=== PATIENT | female | born 1995 | race Caucasian/White ===

== ENCOUNTER 2018-08-25 17:30 | Inpatient (IN) ==
--- NOTE | 2018-08-25 17:50 | Emergency Department Note ---
Disposition Clinical Impression: Suicidal ideation Disposition: Admitted As Inpatient Condition: Good Referrals: NONE,PCP [Primary Care Provider] - Forms: ED Satisfaction Letter Time of Disposition: 19:05 Psych HPI - General Chief Complaint: ED Psychiatric Symptoms Stated Complaint: SI Time Seen by Provider: 08/25/18 17:39 Source: patient, family Mode of arrival: ambulatory Limitations: no limitations Nursing Notes Reviewed: Yes Vital Signs Reviewed: Yes - History of Present Illness HPI Narrative: Patient presenting to the ED with request for psychiatric admission. Patient reports that she has had multiple previous psychiatric admissions and has had several attempts in the past. Reports increasing feelings of suicidal ideation over the last 2 weeks, getting worse today. States that she is come up with "multiple ways to kill myself." She was in an inpatient psychiatric facility previously, but they were having issues with her getting proper medication and was told to come here for evaluation by psychiatry. She denies any medical problems. She has had a recent increase in her Abilify and doubling of her Remeron which she thinks may be contributing to these symptoms. Denies any headache, changes in vision, chest pain, shortness breath, abdominal pain, nausea, vomiting, diarrhea or rash - Related Data Previous Rx's Medication Instructions Recorded Ibuprofen [Motrin] 600 mg PO Q6HR PRN #20 tab 06/10/16 Sulfamethoxazole/Trimeth DS 1 each PO BID #14 tablet 06/10/16 [Bactrim DS] Allergies Allergy/AdvReac Type Severity Reaction Status Date / Time bupropion [From Wellbutrin] Allergy See Verified 08/25/18 17:36 Comments escitalopram [From Lexapro] Allergy See Verified 08/25/18 17:36 Comments fluoxetine [From Prozac] Allergy See Verified 08/25/18 17:36 Comments phenytoin [From Dilantin] Allergy Seizure Verified 08/25/18 17:36 quetiapine [From Seroquel] Allergy See Verified 08/25/18 17:36 Comments Review of Systems: As reviewed in the HPI. All other systems reviewed are negative or normal. Past Medical History - Past Medical History Attestation: Yes The following information was validated with the patient. Source: patient Medical history: Reports: no medical history, other Surgical history: Reports: (The patient denies any major medical problems however she is allergic to multiple psychotropics which may indicate a history of anxiety or depression) Psychiatric history: Reports: anxiety, depression, prior suicide attempt, previous psychiatric hospitalization LEAD CASTER history: Reports: no LEAD CASTER history - Social History Smoking Status: Current every day smoker Smokeless Tobacco Status: No Alcohol use: Reports: none Drug use: Reports: marijuana Physical Exam CONSTITUTIONAL: [well appearing, alert and in no acute distress] EYES: [EOMI, clear conjunctiva, PERRLA] HENT: [Normocephalic, atraumatic, moist mucus membranes, normal oropharynx] NECK: [normal inspection, full ROM, trachea midline, no obvious swelling] PULMONARY: [normal lung sounds bilaterally, normal chest rise and fall, no respiratory distress or stridor, no wheezes, no rales, no rhonchi CARDIOVASCULAR: [regular rate, regular rhythm, normal heart sounds, no murmurs, distal extremities are warm and well perfused] NEUROLOGIC: [Alert, oriented x3, normal speech, moves all extremities] EXTREMITIES: [Normal inspection, full ROM, no tenderness, no pedal edema, normal capillary refill] MUSCULOSKELETAL: [no gross deformities, atraumatic] SKIN: [No cyanosis, no diaphoresis, normal color, warm, no rash] PSYCHIATRIC: [flat affect, very strict speech, normal insight] - General Limitations: no limitations General appearance: alert, in no apparent distress Course Course Narrative: Pt to be admitted. Vital Signs Temperature 98.1 F 08/25/18 17:33 Pulse Rate 77 08/25/18 17:33 Respiratory Rate 16 08/25/18 17:33 Blood Pressure 127/82 08/25/18 17:33 O2 Sat by Pulse Oximetry 100 08/25/18 17:33 Temperature 98.1 F 08/25/18 17:33 Pulse Rate 77 08/25/18 17:33 Respiratory Rate 16 08/25/18 17:33 Blood Pressure 127/82 08/25/18 17:33 O2 Sat by Pulse Oximetry 100 08/25/18 17:33 Oxygen Delivery Oxygen Delivery Room Air Psych - Lab Data Result diagrams: 08/25/18 17:52 08/25/18 17:52 Lab Results 08/25/18 08/25/18 Range/Units 17:52 17:52 WBC 12.0 H (4.3-11.1) K/mcL RBC 4.74 (3.82-4.97) M/mcL Hgb 14.8 (11.5-15.4) g/dL Hct 43.5 (35.3-44.9) % MCV 91.8 (83.0-100.0) fL MCH 31.2 (28.0-33.3) pg MCHC 34.0 (31.6-35.5) g/dL RDW 12.6 (11.5-14.5) % Plt Count 213 (140-400) K/mcL MPV 9.0 L (9.4-12.4) fL Immature Gran % 1.2 (0-4) % Seg Neutrophils % 65.9 % Lymphocytes % 27.6 % Monocytes % 4.3 % Eosinophils % 0.6 % Basophils % 0.4 % Neutrophils # 7.9 (1.6-8.9) K/mcL Lymphocytes # 3.3 (0.6-4.6) K/mcL Monocytes # 0.5 (0.0-1.3) K/mcL Eosinophils # 0.1 (0.0-0.6) K/mcL Basophils # 0.1 (0.0-0.2) K/mcL Sodium 139 (136-145) mEq/L Potassium 3.8 (3.5-5.1) mEq/L Chloride 102 (98-107) mEq/L Carbon Dioxide 28 (23-29) mEq/L BUN 13 (6-20) mg/dL Creatinine 0.77 (0.60-1.20) mg/dL Est GFR ( Amer) > 60 (> 60) Est GFR (Non-Af Amer) > 60 (> 60) BUN/Creatinine Ratio 17 (6-26) Glucose 101 (70-105) mg/dL Calculated Osmolality 288 (280-300) Calcium 9.8 (8.6-10.3) mg/dL Salicylates < 2.5 L (15.0-30.0) mg/dL Acetaminophen < 10 L (10-20) mcg/mL Ethyl Alcohol < 10 (Less than 10) mg/dL - EKG Data EKG attestation: Yes I reviewed and interpreted this EKG. EKG results narrative: NSR, rate 71, normal axis, no acute ischemic changes. Psychiatric Medical Clearance - Medical Clearance Checklist Medical History: No Social History Section defined Current Vitals: Last Vital Signs Temp 98.1 F 05/06/19 17:33 Pulse 77 08/25/18 17:33 Resp 16 08/25/18 17:33 BP 127/82 08/25/18 17:33 Pulse Ox 100 08/25/18 17:33 Psychiatric Lab Panel: Drug Levels and Toxicity 08/25/18 17:52 Acetaminophen < 10 L Ethyl Alcohol < 10 Abnormal Labs: Abnormal lab results WBC 12.0 K/mcL (4.3-11.1) H 08/25/18 17:52 MPV 9.0 fL (9.4-12.4) L 08/25/18 17:52 Salicylates < 2.5 mg/dL (15.0-30.0) L 08/25/18 17:52 Acetaminophen < 10 mcg/mL (10-20) L 08/25/18 17:52 Statement of Medical Clearance: I have evaluated the patient, reviewed diagnostic information, and certify that the patient's medical condition is sufficiently stable that transfer to the psychiatric unit does not pose a significant risk of deterioration. Attestation Statement - Attestation Attestation: I have seen this patient with the resident physician, I have personally evaluated this patient. I had reviewed the chart and document dictation by the resident physician and aM in agreement with the information documented by the resident physician. Please see documentation by the resident physician for complete chart including past medical history, family medical history, review of systems, current history and physical and laboratory and imaging studies. I was present for all procedures, provided direct supervision for all procedures, was present for the entirety of all procedures and provided direct guidance during the procedures. Please see documentation by the resident physician for any procedures performed. Patient presented emergency department with chief complaint of progressive suicidal ideation or auditory hallucinations with plan to kill her self. She states she has seen outpatient resources several times but they have adjusted her medications as not helping and she feels like she is getting worse. On physical exam she is alert and oriented 3 but has a very flat affect and speaks in a monotonous voice. She has no obvious evidence of current hallucinations. No other focal findings on her physical exam without evidence of toxidrome. Basic laboratory studies were ordered for medical clearance, these were within acceptable limits patient was admitted to psychiatry.
[2018-08-25 18:07] LABS: Basophils # 0.1 K/mcL (0.0-0.2); Basophils % 0.4 %; Eosinophils # 0.1 K/mcL (0.0-0.6); Eosinophils % 0.6 %; Hematocrit 43.5 % (35.3-44.9); Hemoglobin 14.8 g/dL (11.5-15.4); Immature Granulocytes % 1.2 % (0-4); Lymphocytes # 3.3 K/mcL (0.6-4.6); Lymphocytes % 27.6 %; Mean Corpuscular Hemoglobin 31.2 pg (28.0-33.3); Mean Corpuscular Volume 91.8 fL (83.0-100.0); Monocytes # 0.5 K/mcL (0.0-1.3); Monocytes % 4.3 %; Neutrophils # 7.9 K/mcL (1.6-8.9); Platelet Count 213 K/mcL (140-400); Red Blood Count 4.74 M/mcL (3.82-4.97); Red Cell Distribution Width 12.6 % (11.5-14.5); Segmented Neutrophils % 65.9 %
[2018-08-25 18:28] LABS: Acetaminophen < 10 mcg/mL (10-20); BUN/Creatinine Ratio 17 (6-26); Blood Urea Nitrogen 13 mg/dL (6-20); Calcium 9.8 mg/dL (8.6-10.3); Carbon Dioxide 28 mEq/L (23-29); Chloride 102 mEq/L (98-107); Ethanol < 10 mg/dL (Less than 10); Glucose 101 mg/dL (70-105); Osmolality,Calculated 288 (280-300); Potassium 3.8 mEq/L (3.5-5.1); Salicylate < 2.5 mg/dL (15.0-30.0); Sodium 139 mEq/L (136-145); eGFR For Non-African Americans > 60 (> 60)
[2018-08-25] MEDS ORDERED: Mag Hydrox/Al Hydrox/Simeth 30 ML UDC PO PRN (19:32)
[2018-08-25] MEDS ORDERED: *HR* LORazepam 1 MG TABLET PO PRN (19:32)
[2018-08-25] MEDS ORDERED: Haloperidol Lactate 5 MG/ML VIAL IM PRN (19:32)
[2018-08-25] MEDS ORDERED: Ibuprofen 400 MG TABLET PO PRN (19:32)
[2018-08-25] MEDS ORDERED: *HR* LORazepam 2 MG/ML VIAL IM PRN (19:32)
[2018-08-25] MEDS ORDERED: MOM Conc 10 ML UD.LIQ PO PRN (19:32)
[2018-08-25] MEDS: Nicotine 2 MG GUM BC PRN (21:19)
[2018-08-25] MEDS: hydrOXYzine pamoate 25 MG CAPSULE PO PRN (21:19)
[2018-08-25] MEDS: traZODone 50 MG TABLET PO PRN (21:19)
[2018-08-26] MEDS: Nicotine 2 MG GUM BC PRN ×3 (08:19→21:38)
--- NOTE | 2018-08-26 11:08 | Psychiatry History & Physical ---
Date of Encounter: 08/26/18 Time of Encounter: 10:58 History of Present Illness Patient Stated Chief Complaint: suicidal ideation Medicare Admission Attestation: For traditional Medicare patients the provided hospital inpatient services are reasonable and necessary and in the case of services not specified as inpatient-only under 42 CFR 419.22 (n), that they are appropriately provided as inpatient services in accordance 42 CFR 412.3. For Critical Access Hospital the patient may reasonably be expected to be discharged or transferred to a hospital within 96 hours after admission to the Critical Access Hospital. Admitted From: Home Plans for Post Hospital Care: Home History of Present Illness: Ms. Bennett is a 23 year old female who was admitted secondary to suicidal ideation. Client has a history of Schizoaffective Disorder, PTSD, KAILYN, and Borderline Personality Disorder. She has been hospitalized multiple times at [facility] starting at the age of 12y/o and once as a adult at [facility] following an overdose attempt. Currently follows with [facility] and she sees a psychiatrist and a counselor. Takes Abilify and Remeron. Doses of these meds were just increased to 20mg and 30mg but client reports no benefit. Also reports failed trials with Prozac, Lexapro, Wellbutrin, and Seroquel. Client reports multiple past suicide attempts and self injurious behaviors. Endorses AH and VH at baseline and finds these symptoms distressing. Physically healthy. No AOD use. Unaware of any mental illness in family members. Lives with bassam and four year old son. Gets [facility] for mental health. Discussed treatment options and client would like to try Zyprexa. Discussed risks and benefits and will plan to start this medication tonight. Client appears very flat with some thought blocking and delayed responses. Thoughts are organized and she answers questions appropriately but she seems to have a lot of negative symptoms. Client reports poor sleep but a healthy appetite. Past Med Surg Social Fam HX - Past Medical History Medical history: no medical history, other - Past Psychiatric History Psychiatric history: Reports: depression, prior suicide attempt, schizophrenia, previous psychiatric hospitalization Family psychiatric history: No Family History of Suicide: None - Past Surgical History Surgical History: (The patient denies any major medical problems however she is allergic to multiple psychotropics which may indicate a history of anxiety or depression) - Social History Smoking Status: Current every day smoker Smokeless Tobacco Status: No Alcohol use: none Drug use: marijuana - Family History Father Name: lisa bennett Age: 53 Living Status: Still Living Hx Family Cardiac Disorders: Yes (htn) Hx Family Respiratory Disorders: No Hx Family Cancer: No Hx Family GI Disorders: No Hx Family Genitourinary Disorders: No Hx Family Endocrine Disorder: No Hx Family Musculoskeletal Disorders: No Hx Family Neuromuscular Disorders: No Hx Family Neurologic Disorders: No Hx Family HEENT Disorders: No Hx Family Autoimmune Disorders: No Hx Family Reproductive Disorders: No Hx Family Psychosocial Disorders: No Hx Family Medical Disorders: No Medications & Allergies Ibuprofen [Motrin] 600 mg PO Q6HR PRN #20 tab 06/10/16 [Rx] Sulfamethoxazole/Trimeth DS [Bactrim DS] 1 each PO BID #14 tablet 06/10/16 [Rx] Allergy/AdvReac Type Severity Reaction Status Date / Time bupropion [From Wellbutrin] Allergy See Verified 08/25/18 17:36 Comments escitalopram [From Lexapro] Allergy See Verified 08/25/18 17:36 Comments fluoxetine [From Prozac] Allergy See Verified 08/25/18 17:36 Comments phenytoin [From Dilantin] Allergy Seizure Verified 08/25/18 17:36 quetiapine [From Seroquel] Allergy See Verified 08/25/18 17:36 Comments Review of Systems Constitutional: Denies: fever, chills, weakness, weight change Eyes: Denies: eye pain, vision change Ears, Nose, Throat: Denies: ear pain, throat pain, dental pain, hearing loss, congestion Cardiovascular: Denies: chest pain, palpitations, dyspnea on exertion Respiratory: Denies: cough, dyspnea, wheezes Gastrointestinal: Denies: abdominal pain, nausea, vomiting, diarrhea, cons tipation Genitourinary female: Denies: urgency, dysuria, frequency, abnormal menses, dyspareunia Musculoskeletal: Denies: joint swelling, joint pain Integumentary: Denies: rash, lesions, pruritus Neurological: Denies: headache, weakness, numbness, memory loss Endocrine: Denies: fatigue, heat or cold intolerance Hematologic/Lymphatic: Denies: easy bruising, lymphadenopathy Allergic/Immunologic: Denies: urticaria, itchy eyes Exam - HEENT Head exam IM: Present: atraumatic Eye exam IM: Present: EOMI, normal appearance, PERRL ENT exam IM: Present: normal exam - Neurological Neurological exam: Present: CN II-XII intact - Respiratory Respiratory exam IM: Present: CTAB - GI/Abdominal GI/Abdominal exam IM: Present: normal bowel sounds, soft. Absent: tenderness - Extremities Extremities exam IM: Present: full ROM - Skin Skin exam IM: Present: dry, warm - Constitutional Vitals: Temp Pulse Resp BP Pulse Ox 98.5 F 66 16 106/77 97 08/26/18 09:00 08/26/18 09:00 08/26/18 09:00 08/26/18 09:00 08/26/18 09:00 General appearance: age & developmentally appropriate, well-groomed, well- nourished - Musculoskeletal Gait: normal Station: relaxed Strength & Tone: normal for patient - Psychiatric Patient Orientation: Yes Person, Yes Time, Yes Place Level of alertness: Alert Behavior: calm, cooperative Psychomotor activity: Slowed Eye Contact: Intense Contact Mood Description: Depressed Affect description: flat Speech Volume: Normal Speech pattern: monotone Thought Process: Thought Blocking Thought Content: Yes Suicidal ideation, No Homicidal ideation, No Overt delusions Perceptual Disturbances: No Reacting to internal stimuli, Yes Auditory hallucinations, Yes Visual hallucinations Attention Span Ability: Capable of Focused Attention Memory Description: Grossly Intact Patient Reliability: Reliable Historian Fund of knowledge: Yes abstraction ability Intelligence Estimate: Average Judgment: Limited Insight: Partial Results - Drug Levels and Toxicology Drug Levels and Toxicology: Drug Levels and Toxicity 08/25/18 17:52 Acetaminophen < 10 L Ethyl Alcohol < 10 - Labs Labs: Laboratory Last Values WBC 12.0 K/mcL (4.3-11.1) H 08/25/18 17:52 RBC 4.74 M/mcL (3.82-4.97) 08/25/18 17:52 Hgb 14.8 g/dL (11.5-15.4) 08/25/18 17:52 Hct 43.5 % (35.3-44.9) 08/25/18 17:52 MCV 91.8 fL (83.0-100.0) 08/25/18 17:52 MCH 31.2 pg (28.0-33.3) 08/25/18 17:52 MCHC 34.0 g/dL (31.6-35.5) 08/25/18 17:52 RDW 12.6 % (11.5-14.5) 08/25/18 17:52 Plt Count 213 K/mcL (140-400) 08/25/18 17:52 MPV 9.0 fL (9.4-12.4) L 08/25/18 17:52 Immature Gran % 1.2 % (0-4) 08/25/18 17:52 Seg Neutrophils % 65.9 % 08/25/18 17:52 27.6 % 08/25/18 17:52 4.3 % 08/25/18 17:52 0.6 % 08/25/18 17:52 0.4 % 08/25/18 17:52 7.9 K/mcL (1.6-8.9) 08/25/18 17:52 3.3 K/mcL (0.6-4.6) 08/25/18 17:52 0.5 K/mcL (0.0-1.3) 08/25/18 17:52 0.1 K/mcL (0.0-0.6) 08/25/18 17:52 0.1 K/mcL (0.0-0.2) 08/25/18 17:52 Sodium 139 mEq/L (136-145) 08/25/18 17:52 Potassium 3.8 mEq/L (3.5-5.1) 08/25/18 17:52 Chloride 102 mEq/L (98-107) 08/25/18 17:52 Carbon Dioxide 28 mEq/L (23-29) 08/25/18 17:52 BUN 13 mg/dL (6-20) 08/25/18 17:52 0.77 mg/dL (0.60-1.20) 08/25/18 17:52 Est GFR ( Amer) > 60 (> 60) 08/25/18 17:52 Est GFR (Non-Af Amer) > 60 (> 60) 08/25/18 17:52 17 (6-26) 08/25/18 17:52 Glucose 101 mg/dL (70-105) 08/25/18 17:52 288 (280-300) 08/25/18 17:52 Calcium 9.8 mg/dL (8.6-10.3) 08/25/18 17:52 Salicylates < 2.5 mg/dL (15.0-30.0) L 08/25/18 17:52 Acetaminophen < 10 mcg/mL (10-20) L 08/25/18 17:52 Ethyl Alcohol < 10 mg/dL (Less than 10) 08/25/18 17:52 Assessment and Plan (1) Schizoaffective disorder Current visit: Yes Status: Acute Plan: Admit inpatient for safety and stabilization, Close observation, Suicide Precautions per unit protocol, Encourage participation in unit milieu, Group Therapy, Monitor sleep, Monitor appetite Risks, benefits, side effects, alternatives discussed w/pt: Yes Patient agreeable to treatment: Yes Plans for Post Hospital Care: Home Estimated Length of Stay (Days): 4 Qualifiers: Schizoaffective disorder type: depressive Qualified Code(s): F25.1 - Schizoaffective disorder, depressive type
--- NOTE | 2018-08-26 15:31 | Electrocardiograph Report ---
[place] [id number] Test Date: 2018-08-25 Pat Name: Thais Elise Department: 104 Room: [facility] Gender: F Wiper Blender: Pawan : 1995 Requested By: Shakir Hardin Order Number: [id number] Reading MD: Dain Schwarz Measurements Intervals [place] Rate: 71 P: 58 AL: 156 QRS: 48 QRSD: 89 T: 34 QT: 365 QTc: 388 Interpretive Statements SINUS RHYTHM NONSPECIFIC T-WAVE ABNORMALITY Electronically Signed On 08-26-2018 15:29:22 EDT by Dain Schwarz
[2018-08-26 18:51] LABS: Bilirubin,Urine Negative (Negative); Blood,Urine Negative (Negative); Clarity,Urine Clear (Clear); Color,Urine Yellow (Yellow); Glucose,Urine (UA) Normal (Normal); Ketones,Urine Negative (Negative); Leukocyte Esterase,Urine Small (Negative); Nitrite,Urine Negative (Negative); PH,Urine 6.5 pH Units (5.0-8.0); Protein,Urine Negative (Neg-Trace); Specific Gravity,Urine 1.017 (1.010-1.025); Urobilinogen,Urine Normal (Normal)
[2018-08-26 18:53] LABS: Bacteria,Urine Few per hpf (None-Few); Hyaline Casts,Urine None Seen per lpf (None-Few); RBC,Urine 0-3 per hpf (0-3); Squamous Epithelial Cell,Urine Many per lpf (None-Few)
[2018-08-26] MEDS: OLANZapine 5 MG TAB.RAPDIS PO SCH (21:37)
[2018-08-26] MEDS: traZODone 50 MG TABLET PO PRN (21:38)
[2018-08-26] MEDS: hydrOXYzine pamoate 25 MG CAPSULE PO PRN (21:38)
[2018-08-27] MEDS: Nicotine 2 MG GUM BC PRN ×3 (08:25→20:52)
--- NOTE | 2018-08-27 09:54 | Psychiatry Progress Note ---
Date of Encounter: 08/27/18 Time of Encounter: 09:50 Subjective Interval history: Seems to be doing well. Reports the Zyprexa worked well for her last night. Denies any side effects. Feels mood has improved. Denies SI, intent, or plan today. Still has AH/VH but states they are less intense. Feels positive about medication. Out of room and attending groups. Interactions are strained at times. She is pleasant but socially awkward and she is not as engaged with her peer group on the unit as they are with each other. However, she has improved and she is already linked with outpatient services. Will give her one more night on the new medication but anticipate discharge tomorrow. Review of Systems Constitutional: Denies: fever, chills, weakness, weight change Eyes: Denies: eye pain, vision change Ears, Nose, Throat: Denies: ear pain, throat pain, dental pain, hearing loss, congestion Cardiovascular: Denies: chest pain, palpitations, dyspnea on exertion Respiratory: Denies: cough, dyspnea, wheezes Gastrointestinal: Denies: abdominal pain, nausea, vomiting, diarrhea, constipation Musculoskeletal: Denies: joint swelling, joint pain Neurological: Denies: headache, weakness, numbness, memory loss Results - Vital Signs Vital Signs: Temp Pulse Resp BP Pulse Ox 98.6 F 76 16 106/69 95 08/27/18 09:00 08/27/18 09:00 08/27/18 09:00 08/27/18 09:00 08/27/18 09:00 - Labs Labs: Laboratory Results - last 24 hr 08/26/18 18:35 Urine Color Yellow Urine Clarity Clear Urine pH 6.5 Ur Specific [place] 1.017 Urine Protein Negative Urine Glucose (UA) Normal Urine Ketones Negative Urine Blood Negative Urine Nitrite Negative Urine Bilirubin Negative Urine Urobilinogen Normal Ur Leukocyte Esterase Small H Urine Microscopic RBC 0-3 Urine Microscopic WBC 3-5 H Ur Squamous Epith Cells Many H Urine Bacteria Few Hyaline Casts None Seen Assessment and Plan (1) Schizoaffective disorder Current visit: Yes Status: Acute Plan: Continue hospitalization, Close observation, Suicide Precautions per unit protocol, Encourage participation in unit milieu, Group Therapy, Monitor sleep, Monitor appetite Risks, benefits, side effects, alternatives discussed w/pt: Yes Patient agreeable to treatment: Yes Qualifiers: Schizoaffective disorder type: depressive Qualified Code(s): F25.1 - Schizoaffective disorder, depressive type Consult Discharge Plan - Plan Referrals: NONE,PCP [Primary Care Provider] - Psychiatry Exam - Constitutional Vitals: Temp Pulse Resp BP Pulse Ox 98.6 F 76 16 106/69 95 08/27/18 09:00 08/27/18 09:00 08/27/18 09:00 08/27/18 09:00 08/27/18 09:00 General appearance: age & developmentally appropriate, well-groomed, well- nourished - Musculoskeletal Gait: normal Station: relaxed Strength & Tone: normal for patient - Psychiatric Patient Orientation: Yes Person, Yes Time, Yes Place Level of alertness: Alert Behavior: calm, cooperative Psychomotor activity: Normal Eye Contact: Maintains Eye Contact Mood Description: Depressed Affect description: blunted Speech Volume: Normal Speech pattern: normal rate, normal rhythm, normal tone, fluent, spontaneous Language & Vocabulary: consistent with education Thought Process: Linear Thought Content: No Suicidal ideation, No Homicidal ideation, No Overt delusions Perceptual Disturbances: Yes Auditory hallucinations, Yes Visual hallucinations Attention Span Ability: Capable of Focused Attention Memory Description: Grossly Intact Patient Reliability: Reliable Historian Fund of knowledge: Yes abstraction ability, Yes aware of current events Intelligence Estimate: Average Judgment: Fair Insight: Partial
[2018-08-27] MEDS: OLANZapine 5 MG TAB.RAPDIS PO SCH (20:51)
--- NOTE | 2018-08-28 09:01 | Discharge Summary ---
Date of Encounter: 08/28/18 Time of Encounter: 08:55 Diagnosis - Discharge Diagnosis (1) Schizoaffective disorder Status: Acute Qualifiers: Schizoaffective disorder type: depressive Qualified Code(s): F25.1 - Schizoaffective disorder, depressive type Medications - Discharge Medications Prescriptions: OLANZapine [Zyprexa Zydis] 5 mg PO HS #30 tab.rapdis OLANZapine [Zyprexa Zydis] 5 mg PO HS #30 tab.rapdis 08/28/18 [Rx] Allergy/AdvReac Type Severity Reaction Status Date / Time bupropion [From Wellbutrin] Allergy See Verified 08/25/18 17:36 Comments escitalopram [From Lexapro] Allergy See Verified 08/25/18 17:36 Comments fluoxetine [From Prozac] Allergy See Verified 08/25/18 17:36 Comments phenytoin [From Dilantin] Allergy Seizure Verified 08/25/18 17:36 quetiapine [From Seroquel] Allergy See Verified 08/25/18 17:36 Comments Results Procedures and tests throughout hospitalization: Completed Lab Orders Category Date Time Status Acetaminophen Stat Lab 08/25/18 17:52 Completed Basic Metabolic Panel Stat Lab 08/25/18 17:52 Completed Complete Blood Count [HEME] Stat Lab 08/25/18 17:52 Completed Ethanol Stat Lab 08/25/18 17:52 Completed Salicylate Stat Lab 08/25/18 17:52 Completed Urinalysis reflex Microscopic [URIN] Stat Lab 08/26/18 18:35 Completed Provider Date of admission: 08/25/18 19:23 Primary care physician: PCP NONE Discharging clinician: Maritza Collins Psychiatry Exam - Constitutional Vitals: Temp Pulse Resp BP Pulse Ox 98.6 F 62 16 134/80 100 08/27/18 20:14 08/27/18 20:14 08/27/18 20:14 08/27/18 20:14 08/27/18 20:14 General appearance: age & developmentally appropriate, well-groomed, well- nourished - Musculoskeletal Gait: normal Station: relaxed Strength & Tone: normal for patient - Psychiatric Patient Orientation: Yes Person, Yes Time, Yes Place Level of alertness: Alert Behavior: calm, cooperative Psychomotor activity: Normal Eye Contact: Maintains Eye Contact Mood Description: Euthymic/stable Affect description: congruent with mood, full range Speech Volume: Normal Speech pattern: normal rate, normal rhythm, normal tone, fluent, spontaneous Language & Vocabulary: consistent with education Thought Process: Linear, Goal Oriented Thought Content: No Suicidal ideation, No Homicidal ideation, No Overt delusions Perceptual Disturbances: No Reacting to internal stimuli, Yes Auditory hallucinations, No Visual hallucinations Attention Span Ability: Capable of Focused Attention Memory Description: Grossly Intact Patient Reliability: Reliable Historian Fund of knowledge: Yes abstraction ability, Yes aware of current events Intelligence Estimate: Average Judgment: Fair Insight: Partial Hospital Course Hospital course: Ms. Elise is a 23 year old female who was admitted secondary to SI/AH/VH. History of Schizoaffective Disorder and multiple hospitalizations. Taking Remeron and Abilify at time of admission. Doses of both meds had just been increased by outpatient provider with no real benefit. These meds were stopped and low dose Zyprexa was started. Client responded well to this medication. Her mood improved. Today she is denying SI, intent, or plan. States AH are down to a "whisper" and easy to cope with. She has more affect. Smiling and conversing. She is a bit socially awkward but she attended and participated in groups and made efforts to socialize with staff and her peers. Eating and sleeping well. Linked with [facility] for outpatient treatment. Has support from quee and son. Looks visibly improved and client is expressing future orientation and positive coping skills. States she is safe for discharge today. Total time spent with client greater than 30 minutes. Patient was educated of her diagnosis and the risks, benefits, and side effects of this treatment and alternative treatment options and was monitored for responsiveness and side effects. Mood, anxiety, sleep, appetite, and interest improved, as did future orientation. Self-harm thoughts subsided, thinking cleared, psychosis resolved, and mood stabilized. Patient was able to attend both individual and group therapy sessions as well as meeting with the psychiatrist daily and urged to discuss any medication or treatment issues or other concerns. The patient was educated primarily by verbal means about their diagnosis and manifestations in their life. The option for treatment including group and individual therapy programming was offered to the patient in the use of medications with all their potential risks, benefits, and side effects were discussed with the patient at length. The patient was given the opportunity to ask questions and was noted to participate in the treatment in the planning process. The patient felt ready and eager to be discharged from the inpatient psychiatric unit to continue on with treatment as an outpatient. The patient agreed that she is safe for this disposition. The patient was considered to be able to participate in informed consent and decision making with respect to medical, legal, and financial issues of the time of discharge. At the time of discharge the patient adamantly denied any concerns for lethality including suicidal or homicidal thoughts ideations or plans and was future oriented toward ongoing mental health care, medical follow-up and sobriety. - Time Spent with Patient Total time spent providing and/or coordinating discharge services: Assessment and Plan - Patient/Caregiver Discharge Instructions Activity: resume usual activities as tolerated Diet: regular diet - Follow up Plan Follow up with: NONE,PCP [Primary Care Provider] - Functional capacity at discharge: independent ambulation Overall status at discharge: Stable Disposition: Home, Self-Care Quality - Multiple Antipsychotics Patient discharged on 2 or more antipsychotic medications: No Procedures - Procedures Procedures: Medication Management, Crisis Stabilization, Supportive Therapy, Group Therapy
[2018-08-28] MEDS: Nicotine 2 MG GUM BC PRN (09:02)
[2018-08-28 13:52] VITALS: BP 105/68
== END 2018-08-28 11:30 | disposition home or self-care (01) | DRG 750 ==
LOC: EMEROOARM 17:30 → 1ANU 19:23
PROVIDERS: ADMIT Psychiatry & Neurology Psychiatry; ATTEND Psychiatry & Neurology Psychiatry

== ENCOUNTER 2019-09-01 22:32 | Inpatient (IN) ==
[2019-09-01 23:14] LABS: Basophils # 0.1 K/mcL (0.0-0.2); Basophils % 0.4 %; Eosinophils # 0.2 K/mcL (0.0-0.6); Eosinophils % 1.2 %; Hematocrit 43.2 % (35.3-44.9); Hemoglobin 14.3 g/dL (11.5-15.4); Lymphocytes # 3.3 K/mcL (0.6-4.6); Lymphocytes % 23.3 %; Mean Corpuscular HGB Conc 33.1 g/dL (31.6-35.5); Mean Corpuscular Hemoglobin 30.8 pg (28.0-33.3); Mean Corpuscular Volume 93.1 fL (83.0-100.0); Mean Platelet Volume 8.8 fL (9.4-12.4); Monocytes # 0.8 K/mcL (0.0-1.3); Monocytes % 5.3 %; Neutrophils # 9.8 K/mcL (1.6-8.9); Platelet Count 272 K/mcL (140-400); Red Blood Count 4.64 M/mcL (3.82-4.97); Red Cell Distribution Width 13.1 % (11.5-14.5); Segmented Neutrophils % 68.8 %; White Blood Count 14.2 K/mcL (4.3-11.1)
[2019-09-01 23:19] LABS: Bilirubin,Urine Negative (Negative); Blood,Urine Negative (Negative); Clarity,Urine Cloudy (Clear); Color,Urine Yellow (Yellow); Glucose,Urine (UA) Normal (Normal); Ketones,Urine Negative (Negative); Leukocyte Esterase,Urine Moderate (Negative); Nitrite,Urine Negative (Negative); PH,Urine 6.5 pH Units (5.0-8.0); Protein,Urine Negative (Neg-Trace); Urobilinogen,Urine Normal (Normal)
[2019-09-01 23:21] LABS: Bacteria,Urine Moderate per hpf (None-Few); Hyaline Casts,Urine None Seen per lpf (None-Few); Squamous Epithelial Cell,Urine Moderate per lpf (None-Few); WBC,Urine 50-100 per hpf (0-3)
[2019-09-01 23:31] LABS: Amphetamine Screen,Urine Negative ng/mL (Cutoff=1000); Barbiturate Screen,Urine Negative ng/mL (Cutoff=200); Benzodiazepines Screen,Urine Negative ng/mL (Cutoff=200); Cannabinoid Screen,Urine Positive ng/mL (Cutoff = 50); Cocaine Screen,Urine Positive ng/mL (Cutoff= 300); Opiate Screen,Urine Negative ng/mL (Cutoff=300); Phencyclidine Screen,Urine Negative ng/mL (Cutoff=25)
[2019-09-01 23:34] LABS: Acetaminophen < 10 mcg/mL (10-20); BUN/Creatinine Ratio 9 (6-26); Blood Urea Nitrogen 8 mg/dL (6-20); Calcium 9.1 mg/dL (8.6-10.3); Carbon Dioxide 23 mEq/L (23-29); Chloride 104 mEq/L (98-107); Ethanol < 10 mg/dL (Less than 10); Glucose 206 mg/dL (70-105); Osmolality,Calculated 286 (280-300); Salicylate < 2.5 mg/dL (15.0-30.0); Sodium 136 mEq/L (136-145); eGFR For African Americans > 60 (> 60); eGFR For Non-African Americans > 60 (> 60)
[2019-09-02] MEDS ORDERED: haloperidoL 5 MG TABLET PO PRN (02:44)
[2019-09-02] MEDS ORDERED: *HR* LORazepam 2 MG/ML VIAL IM PRN (02:44)
[2019-09-02] MEDS ORDERED: Haloperidol Lactate 5 MG/ML VIAL IM PRN (02:44)
[2019-09-02] MEDS ORDERED: hydrOXYzine pamoate 25 MG CAPSULE PO PRN (02:44)
[2019-09-02] MEDS ORDERED: *HR* LORazepam 1 MG TABLET PO PRN (02:44)
[2019-09-02] MEDS ORDERED: Acetaminophen 325 MG TABLET PO PRN (02:44)
[2019-09-02] MEDS ORDERED: Ibuprofen 400 MG TABLET PO PRN (02:44)
[2019-09-02] MEDS: Nicotine 21 MG PATCH.TD24 TD SCH (09:44)
[2019-09-02] MEDS ORDERED: QUEtiapine Fumarate 25 MG TABLET PO PRN (12:02)
[2019-09-02] MEDS ORDERED: Lurasidone 20 MG TABLET PO SCH (18:00)
[2019-09-02] MEDS: Lithium Oral Soln 300 MG/5 ML (8 mEq/5mL) UDC PO SCH (20:30)
[2019-09-03] MEDS: Lithium Oral Soln 300 MG/5 ML (8 mEq/5mL) UDC PO SCH (08:42)
[2019-09-03] MEDS: Nicotine 21 MG PATCH.TD24 TD SCH (08:42)
[2019-09-03 09:22] VITALS: BP 123/88
== END 2019-09-03 10:50 | disposition home or self-care (01) | DRG 750 ==
LOC: 1ANU 22:32 → EMEROOARM 22:32 → OBSVTOIN 09-02 02:34 → 1ANU 09-02 03:45
PROVIDERS: ADMIT Psychiatry & Neurology Psychiatry; ATTEND Psychiatry & Neurology Psychiatry

== ENCOUNTER 2019-09-13 20:27 | Observation (INO) ==
[2019-09-13 20:58] LABS: Basophils # 0.1 K/mcL (0.0-0.2); Basophils % 0.3 %; Eosinophils # 0.1 K/mcL (0.0-0.6); Eosinophils % 0.6 %; Hematocrit 42.7 % (35.3-44.9); Hemoglobin 14.3 g/dL (11.5-15.4); Immature Granulocytes % 0.7 % (0-4); Lymphocytes # 3.8 K/mcL (0.6-4.6); Lymphocytes % 24.4 %; Mean Corpuscular HGB Conc 33.5 g/dL (31.6-35.5); Mean Corpuscular Hemoglobin 30.8 pg (28.0-33.3); Mean Corpuscular Volume 91.8 fL (83.0-100.0); Mean Platelet Volume 8.7 fL (9.4-12.4); Monocytes # 0.7 K/mcL (0.0-1.3); Monocytes % 4.4 %; Neutrophils # 10.9 K/mcL (1.6-8.9); Platelet Count 286 K/mcL (140-400); Red Blood Count 4.65 M/mcL (3.82-4.97); Red Cell Distribution Width 12.9 % (11.5-14.5); Segmented Neutrophils % 69.6 %; White Blood Count 15.7 K/mcL (4.3-11.1)
[2019-09-13 21:16] LABS: Acetaminophen < 10 mcg/mL (10-20); BUN/Creatinine Ratio 9 (6-26); Blood Urea Nitrogen 8 mg/dL (6-20); Calcium 9.4 mg/dL (8.6-10.3); Carbon Dioxide 27 mEq/L (23-29); Chloride 104 mEq/L (98-107); Ethanol < 10 mg/dL (Less than 10); Glucose 90 mg/dL (70-105); Osmolality,Calculated 284 (280-300); Potassium 3.4 mEq/L (3.5-5.1); Salicylate 3.1 mg/dL (15.0-30.0); Sodium 138 mEq/L (136-145); eGFR For African Americans > 60 (> 60); eGFR For Non-African Americans > 60 (> 60)
[2019-09-13 21:56] LABS: Bilirubin,Urine Negative (Negative); Blood,Urine Negative (Negative); Clarity,Urine Clear (Clear); Color,Urine Yellow (Yellow); Glucose,Urine (UA) Normal (Normal); Ketones,Urine Negative (Negative); Leukocyte Esterase,Urine Negative (Negative); Nitrite,Urine Negative (Negative); PH,Urine 7.5 pH Units (5.0-8.0); Protein,Urine Negative (Neg-Trace); Specific Gravity,Urine 1.007 (1.010-1.025); Urobilinogen,Urine Normal (Normal)
[2019-09-13 22:07] LABS: Amphetamine Screen,Urine Negative ng/mL (Cutoff=1000); Barbiturate Screen,Urine Negative ng/mL (Cutoff=200); Benzodiazepines Screen,Urine Negative ng/mL (Cutoff=200); Cannabinoid Screen,Urine Positive ng/mL (Cutoff = 50); Cocaine Screen,Urine Negative ng/mL (Cutoff= 300); Opiate Screen,Urine Negative ng/mL (Cutoff=300); Phencyclidine Screen,Urine Negative ng/mL (Cutoff=25)
[2019-09-13] MEDS: 0.9 % Sodium Chloride 1,000 ML IVC SCH (22:08)
[2019-09-13] MEDS ORDERED: Naloxone 0.4 MG/ML INJ IVP PRN (23:10)
[2019-09-13] MEDS ORDERED: 0.9 % Sodium Chloride 1,000 ML IVC SCH (23:15)
[2019-09-14] MEDS ORDERED: Potassium Chloride Elixir 20 MEQ/15 ML UDC PO ONE (00:02)
[2019-09-14 00:35] LABS: White Blood Count 13.3 K/mcL (4.3-11.1)
[2019-09-14 00:36] LABS: Basophils # 0.1 K/mcL (0.0-0.2); Basophils % 0.4 %; Eosinophils # 0.2 K/mcL (0.0-0.6); Eosinophils % 1.3 %; Hematocrit 41.4 % (35.3-44.9); Hemoglobin 13.6 g/dL (11.5-15.4); Immature Granulocytes % 0.5 % (0-4); Lymphocytes # 3.4 K/mcL (0.6-4.6); Lymphocytes % 25.5 %; Mean Corpuscular HGB Conc 32.9 g/dL (31.6-35.5); Mean Corpuscular Hemoglobin 29.9 pg (28.0-33.3); Mean Platelet Volume 8.9 fL (9.4-12.4); Monocytes # 0.7 K/mcL (0.0-1.3); Monocytes % 5.5 %; Neutrophils # 8.9 K/mcL (1.6-8.9); Platelet Count 250 K/mcL (140-400); Red Blood Count 4.55 M/mcL (3.82-4.97); Red Cell Distribution Width 12.8 % (11.5-14.5); Segmented Neutrophils % 66.8 %
[2019-09-14 00:53] LABS: Alanine Aminotransferase 10 Units/L (7-52); Albumin/Globulin Ratio 1.9 (1.1-2.2); Alkaline Phosphatase 42 Units/L (34-104); Aspartate Amino Transferase 12 Units/L (13-39); BUN/Creatinine Ratio 10 (6-26); Bilirubin,Total 0.7 mg/dL (0.3-1.0); Blood Urea Nitrogen 7 mg/dL (6-20); Calcium 8.7 mg/dL (8.6-10.3); Carbon Dioxide 24 mEq/L (23-29); Chloride 107 mEq/L (98-107); Globulin 2.1 g/dL (2.4-3.5); Glucose 96 mg/dL (70-105); Magnesium 2.1 mg/dL (1.6-2.6); Osmolality,Calculated 282 (280-300); Phosphorous 3.5 mg/dL (2.7-4.5); Potassium 3.6 mEq/L (3.5-5.1); Sodium 137 mEq/L (136-145); Total Protein 6.1 g/dL (6.4-8.9); eGFR For African Americans > 60 (> 60); eGFR For Non-African Americans > 60 (> 60)
[2019-09-14] MEDS: 0.9 % Sodium Chloride 1,000 ML IVC SCH (04:47)
[2019-09-14] MEDS ORDERED: *HR* Heparin 5,000 UNIT/ML VIAL SQ SCH (06:00)
[2019-09-14] MEDS ORDERED: Acetaminophen 325 MG TABLET PO PRN (07:54)
[2019-09-14] MEDS ORDERED: Nicotine 21 MG PATCH.TD24 TD SCH (09:00)
[2019-09-14 10:07] VITALS: BP 98/62
== END 2019-09-14 14:30 ==
LOC: EMEROOARM 20:27 → ICNU 20:27 → 3BNU 20:27 → SUATTDRO 09-14 00:16 → ICNU 09-14 00:35
PROVIDERS: ADMIT Student in an Organized Health Care Education/Training Program; ATTEND Family Medicine